=== PATIENT | female | born 1950 | race Caucasian/White ===

== ENCOUNTER 2016-07-28 07:29 | Day surgery (SDC) | payer BC, OTHER ==
--- NOTE | 2016-07-21 12:15 | HISTORY AND PHYSICAL E ---
History and Physical NAME: REI SHARP : 1950 AGE: 65Y ADMITTED: 07/28/2016 ROOM: CHIEF COMPLAINT: Patient known to us in 2008 where she has strong family history of colon cancer. She does have epigastric abdominal pain. Patient was treated for H. pylori with Prevpac. SOCIAL HISTORY: . Two children. Does not smoke. Drinks socially. ALLERGIES: Negative. PAST MEDICAL HISTORY: Colonoscopy in the past. REVIEW OF SYSTEMS: GASTROINTESTINAL: History of polyps and reflux. ENDOCRINE: Negative. RESPIRATORY: Negative. NEUROLOGY: Negative. FAMILY HISTORY: Her father in a accident, fall. Her mom is alive. She has history of colon cancer. PHYSICAL EXAMINATION: VITAL SIGNS: Blood pressure is 110/60, pulse 80, respirations 20, temp is 98. HEAD, EYES, EARS, NOSE, THROAT: Normal. ABDOMEN: Soft. NEUROLOGIC: Negative. Patient referred to us back then by [facility]. She did have colonoscopy showing rectosigmoid polyps and cecal polyp. Her cecum shows adenoma polyp in 2008. A 2 mm polyp in cecum, 2 mm polyp in rectosigmoid. The cecum was tubular adenoma. Patient does have reflux, hiatus hernia. The patient did have ultrasound. It shows fatty liver. Another colonoscopy done 2011 shows as follows: She did have 2 mm prominent mucosa, 2 mm ascending colon polyp. She does have tubular adenoma, ascending colon polyp. CONCLUSION: Strong family history of colon cancer on mom's side, reflux. Patient does have history of small adenoma polyps in the ascending colon. PLAN: Colonoscopy scheduled for 07/28. DICTATING PHYSICIAN: ANDREI SINGLETON M.D. [id number] Y#: [id number] ID: [id number] JOB#: [id number] ACCT: [id number] cc:ANDREI SINGLETON M.D. >
[2016-07-28] MEDS ORDERED: GLYCOPYRROLATE INJ 0.4 MG/2 ML VIAL ONE (07:55)
[2016-07-28] MEDS ORDERED: ONDANSETRON HCL INJ/PF 4 MG/2 ML SDV ONE (07:55)
[2016-07-28] MEDS ORDERED: NALOXONE HCL INJ/PF 0.4 MG/1 ML SDV ONE (07:55)
[2016-07-28] MEDS ORDERED: LIDOCAINE 2% JELLY 30 ML TUBE ONE (07:55)
[2016-07-28] MEDS ORDERED: PROMETHAZINE HCL INJ 25 MG/1 ML VIAL ONE (07:55)
[2016-07-28] MEDS ORDERED: FLUMAZENIL INJ 0.5 MG/5 ML VIAL IV ONE (07:56)
[2016-07-28] MEDS ORDERED: MIDAZOLAM 2 MG/2 ML INJ ONE (07:56)
[2016-07-28] MEDS ORDERED: GLUCAGON,HUMAN RECOMB 1 MG INJ ONE (07:57)
[2016-07-28] MEDS ORDERED: EPINEPHRINE INJ 1 MG/10 ML DISP.SYRIN ONE (07:57)
[2016-07-28] MEDS: MIDAZOLAM 2 MG/2 ML INJ ONE ×2 (08:12→08:23)
[2016-07-28] MEDS: FENTANYL CITRATE INJ/PF 100 MCG/2 ML AMPUL ONE ×3 (08:14→08:27)
[2016-07-28 09:52] VITALS: BP 116/71
[2016-07-28 10:24] LABS: ABSOLUTE BASOPHILS # (AUTO) 0.1 10^3/uL (0.0-0.2); ABSOLUTE EOSINOPHILS # (AUTO) 0.2 10^3/uL (0.0-0.6); ABSOLUTE MONOCYTES (AUTO) 0.9 10^3/uL (0.1-1.4); ABSOLUTE NEUT (AUTO) 11.2 10^3/uL (1.7-8.2); BASOPHILS % (AUTO) 0.5 % (0-2); EOSINOPHILS % (AUTO) 1.3 % (0-6); HEMATOCRIT 40.7 % (36.0-47.0); HEMOGLOBIN 13.3 g/dL (12.0-15.5); HGB HCT DIFFERENCE -0.8; LYMPHOCYTES % (AUTO) 13.8 % (13-45); MEAN CORPUSCULAR HEMOGLOBIN 28.7 pg (27.0-33.4); MEAN CORPUSCULAR HGB CONC 32.6 g/dL (32.0-36.0); MEAN CORPUSCULAR VOLUME 88 fl (80-97); MONOCYTES % (AUTO) 6.2 % (3-13); RED BLOOD COUNT 4.62 10^6/uL (3.72-5.28); RED CELL DISTRIBUTION WIDTH 14.8 % (11.5-14.0); SEGMENTED NEUTROPHILS % (AUTO) 78.2 % (42-78); WHITE BLOOD COUNT 14.3 10^3/uL (4.0-10.5)
--- NOTE | 2016-07-28 12:11 | OPERATIVE REPORT E ---
Operative Report NAME: REI SHARP : 1950 AGE: 65Y DATE OF SURGERY: 07/28/2016 ROOM: PREOPERATIVE DIAGNOSES: 1. Family history of colon cancer. 2. Personal history of adenoma polyp. POSTOPERATIVE DIAGNOSES: 1. Polyps in the rectum too small to biopsy. 2. Polyps in the rectosigmoid, biopsy obtained. 3. Polyp in the transverse colon, biopsy obtained. 4. Polyp in the ascending colon, biopsy obtained. OPERATION: Colon exam. SURGEON: ANDREI SINGLETON M.D. ANESTHESIA: Versed 3 mg and Fentanyl 100 mcg. PROCEDURE: Rectal exam shows diminutive polyps. Anorectal exam shows a tiny polyp at the rectosigmoid junction. Descending colon normal. Transverse colon shows a small 2-mm polyp. Ascending colon 2-mm polyp. Cecum normal. Scope withdrawn cecum, ascending, transverse, descending and sigmoid all the way to the rectum. CONCLUSIONS: Small polyps: A 2 mm ascending, 2 mm transverse, 2 mm rectosigmoid junction. PLAN: 1. Soft low-residue diet for 3 days. 2. Hold aspirin and nonsteroidals for 3 days. 3. Awaiting biopsy results. 4. Consideration of follow-up colonoscopy in 2-3 years pending biopsy results. DICTATING PHYSICIAN: ANDREI SINGLETON M.D. 1209M [id number] PHY#: [id number] ID: [id number] JOB#: [id number] ACCT: [id number] cc:ANDREI SINGLETON M.D., RUTH M.D. >
--- NOTE | 2016-07-28 12:12 | DISCHARGE SUMMARY E ---
Discharge Summary NAME: REI SHARP : 1950 AGE: 65Y ADMITTED: 07/28/2016 DISCHARGED: 07/28/2016 SUMMARY: The patient, 65, underwent colon exam showing a small sigmoid polyp and transverse colon polyp, ascending colon, transverse and sigmoid. DISCHARGE PLAN: 1. Soft low-residue diet for 3 days. 2. Hold aspirin and nonsteroidals for 3 days. 3. Awaiting biopsy results. 4. Consideration of follow-up colonoscopy in 2-3 years awaiting histopathology. DICTATING PHYSICIAN: ANDREI SINGLETON M.D. [id number] PHY#: [id number] ID: [id number] JOB#: [id number] ACCT: [id number] cc:ANDREI SINGLETON M.D. >
== END 2016-07-28 09:50 | disposition home or self-care (01) ==
LOC: END 07:29
PROVIDERS: ATTEND Specialist
PROC: 0DBL8ZX Excision of Transverse Colon, Via Natural or Artificial Opening Endoscopic, Diagnostic (ICD-10-PCS; 2016-07-28)
PROC: 0DBP8ZX Excision of Rectum, Via Natural or Artificial Opening Endoscopic, Diagnostic (ICD-10-PCS; 2016-07-28)
PROC: 0DBL8ZX Excision of Transverse Colon, Via Natural or Artificial Opening Endoscopic, Diagnostic (ICD-10-PCS; 2016-07-28)
PROC: 0DBN8ZX Excision of Sigmoid Colon, Via Natural or Artificial Opening Endoscopic, Diagnostic (ICD-10-PCS; principal; 2016-07-28 08:00)
DX: D12.3 Benign neoplasm of transverse colon (principal); D12.7 Benign neoplasm of rectosigmoid junction; D12.2 Benign neoplasm of ascending colon; K21.9 Gastro-esophageal reflux disease without esophagitis; K76.0 Fatty (change of) liver, not elsewhere classified; K44.9 Diaphragmatic hernia without obstruction or gangrene; Z80.0 Family history of malignant neoplasm of digestive organs
CPT/HCPCS: 45380; 36415; 85025; 88305 ×2; J2250; J3010; J1610; J2405; J0171; J2310; J2550; J3490

== ENCOUNTER 2017-07-17 10:40 | Emergency (ER) | payer BC, OTHER ==
[2017-07-17] MEDS ORDERED: MECLIZINE HCL 25 MG TABLET PO ONE (11:40)
--- NOTE | 2017-07-17 11:42 | ER Document Report ---
ED Medical Screen (RME) - General Chief Complaint: Dizziness Stated Complaint: DIZZINESS,BLOOD PRESSURE CONCERNS Time Seen by Provider: 07/17/17 11:39 Notes: pt complains of one month of dizziness, has been to urgent care, pcp, ENT and treated for sinusitis with no relief TRAVEL OUTSIDE OF THE [place] IN LAST 30 DAYS: No - Related Data Allergies/Adverse Reactions: No Known Allergies Allergy (Verified 07/17/17 10:44) Past Medical History - Social History Frequency of alcohol use: None Drug Abuse: Bath salts - Past Medical History Cardiac Medical History: Denies: Hx Coronary Artery Disease, Hx Heart Attack, Hx Hypertension Pulmonary Medical History: Denies: Hx Asthma, Hx Bronchitis, Hx COPD, Hx Pneumonia Neurological Medical History: Denies: Hx Cerebrovascular Accident, Hx Seizures Renal/ Medical History: Denies: Hx Peritoneal Dialysis Musculoskeltal Medical History: Denies Hx Arthritis Past Surgical History: Denies: Hx Hysterectomy, Hx Pacemaker - Immunizations Hx Diphtheria, Pertussis, Tetanus Vaccination: Yes - ABOUT 15 YEARS AGO. Physical Exam - Vital signs Vitals: Temp Pulse Resp BP Pulse Ox 97.8 F 86 18 140/88 H 98 07/17/17 10:54 07/17/17 10:54 07/17/17 10:54 07/17/17 10:54 07/17/17 10:54 Course - Vital Signs Vital signs: Temp Pulse Resp BP Pulse Ox 97.8 F 86 18 140/88 H 98 07/17/17 10:54 07/17/17 10:54 07/17/17 10:54 07/17/17 10:54 07/17/17 10:54
[2017-07-17 12:24] LABS: ABSOLUTE BASOPHILS # (AUTO) 0.1 10^3/uL (0.0-0.2); ABSOLUTE EOSINOPHILS # (AUTO) 0.1 10^3/uL (0.0-0.6); ABSOLUTE LYMPHOCYTES (AUTO) 2.3 10^3/uL (0.5-4.7); ABSOLUTE MONOCYTES (AUTO) 0.4 10^3/uL (0.1-1.4); ABSOLUTE NEUT (AUTO) 7.7 10^3/uL (1.7-8.2); BASOPHILS % (AUTO) 0.8 % (0-2); EOSINOPHILS % (AUTO) 0.8 % (0-6); HEMATOCRIT 46.1 % (36.0-47.0); HEMOGLOBIN 15.6 g/dL (12.0-15.5); LYMPHOCYTES % (AUTO) 21.6 % (13-45); MEAN CORPUSCULAR HEMOGLOBIN 29.8 pg (27.0-33.4); MEAN CORPUSCULAR HGB CONC 33.9 g/dL (32.0-36.0); MEAN CORPUSCULAR VOLUME 88 fl (80-97); MONOCYTES % (AUTO) 3.9 % (3-13); PLATELET COUNT 340 10^3/uL (150-450); RED BLOOD COUNT 5.25 10^6/uL (3.72-5.28); RED CELL DISTRIBUTION WIDTH 14.6 % (11.5-14.0); SEGMENTED NEUTROPHILS % (AUTO) 72.9 % (42-78); TOTAL CELLS COUNTED % (AUTO) 100 %; WHITE BLOOD COUNT 10.6 10^3/uL (4.0-10.5)
[2017-07-17 12:39] LABS: ALANINE AMINOTRANSFERASE 12 U/L (9-52); ALBUMIN 4.6 g/dL (3.5-5.0); ALKALINE PHOSPHATASE 78 U/L (38-126); ANION GAP 13 (5-19); ASPARTATE AMINO TRANSFERASE 15 U/L (14-36); BILIRUBIN,DIRECT 0.2 mg/dL (0.0-0.4); BILIRUBIN,TOTAL 0.7 mg/dL (0.2-1.3); BLOOD UREA NITROGEN 20 mg/dL (7-20); CALCIUM 10.2 mg/dL (8.4-10.2); CARBON DIOXIDE 29 mmol/L (22-30); CHLORIDE 102 mmol/L (98-107); GLUCOSE 122 mg/dL (75-110); POTASSIUM 4.9 mmol/L (3.6-5.0); TOTAL PROTEIN 7.3 g/dL (6.3-8.2)
--- NOTE | 2017-07-17 12:41 | RADIOLOGY REPORT (SQ) ---
EXAM DESCRIPTION: CT HEAD WITHOUT COMPLETED DATE/TIME: 07/17/2017 12:22 pm REASON FOR STUDY: dizzy COMPARISON: None. TECHNIQUE: Axial images acquired through the brain without intravenous contrast. Images reviewed wi th bone, brain and subdural windows. Images stored on PACS. All CT scanners at this facility use dose modulation, iterative reconstruction, and/or weight based d osing when appropriate to reduce radiation dose to as low as reasonably achievable (ALARA). [facility]: Dose Right [facility]: CareDose [facility]: Dose Right [facility]: Teradose 4D [facility]: [employer] RADIATION DOSE: CT Rad equipment meets quality standard of care and radiation dose reduction techniq ues were employed. CTDIvol: 64.6 mGy. DLP: 1163 mGy-cm. mGy. LIMITATIONS: None. FINDINGS: VENTRICLES: Normal size and contour. CEREBRUM: No masses. No hemorrhage. No midline shift. No evidence for acute infarction. Normal gra y/white matter differentiation. No areas of low density in the white matter. CEREBELLUM: No masses. No hemorrhage. No alteration of density. No evidence for acute infarction. EXTRAAXIAL SPACES: No fluid collections. No masses. ORBITS AND GLOBE: No intra- or extraconal masses. Normal contour of globe without masses. CALVARIUM: No fracture. PARANASAL SINUSES: No fluid or mucosal thickening. SOFT TISSUES: No mass or hematoma. OTHER: No other significant finding. IMPRESSION: NORMAL BRAIN CT WITHOUT CONTRAST. EVIDENCE OF ACUTE STROKE: NO. COMMENT: Quality ID # [id number]: Final reports with documentation of one or more dose reduction techniques (e.g., Automated exposure control, adjustment of the mA and/or kV according to patient size, use of iterative reconstruction technique) TECHNICAL DOCUMENTATION: JOB ID: [id number] [place]-69 2010 [employer]- All Rights Reserved
--- NOTE | 2017-07-17 13:27 | EKG REPORT ---
SEVERITY:- ABNORMAL ECG - SINUS RHYTHM PROBABLE LEFT ATRIAL ABNORMALITY BORDERLINE RIGHT AXIS DEVIATION NONSPECIFIC T ABNORMALITIES, ANT-LAT LEADS : Confirmed by: Andrez Gee MD 17-Jul-2017 13:26:33
[2017-07-17 14:29] LABS: APPEARANCE,URINE SLIGHTLY-CLOUDY; BILIRUBIN,URINE NEGATIVE (NEGATIVE); COLOR,URINE YELLOW; GLUCOSE, URINE NEGATIVE (NEGATIVE); KETONES,URINE NEGATIVE (NEGATIVE); LEUKOCYTE ESTERASE,URINE LARGE (NEGATIVE); NITRITE,URINE NEGATIVE (NEGATIVE); PROTEIN,URINE NEGATIVE (NEGATIVE); URINE SPECIFIC GRAVITY 1.011; UROBILINOGEN,URINE NEGATIVE mg/dL (<2.0)
--- NOTE | 2017-07-17 14:42 | ER Document Report ---
ED Dizziness/Weakness - General Chief Complaint: Dizziness Stated Complaint: DIZZINESS,BLOOD PRESSURE CONCERNS Time Seen by Provider: 07/17/17 11:39 Mode of Arrival: Ambulatory Information source: Patient Notes: Patient states for 1 month she has had dizziness. She states there room spinning she also gets lightheaded. She also states that her blood pressure has been very labile when she takes it at home. She states sometimes be very high other times be very low. She has not noticed anything to make symptoms better or worse. No known radiation symptoms. They have been intermittent. They are mild to moderate. She denies any chest pain or shortness of breath. No numbness tingling weakness or paresthesias. She states she has seen her primary care doctor, and urgent care doctor, and an ear nose and throat doctor. She states she was treated for sinusitis however none of these treatments that included antibiotics and nasal steroids have changed the symptoms. TRAVEL OUTSIDE OF THE [place] IN LAST 30 DAYS: No - Related Data Allergies/Adverse Reactions: No Known Allergies Allergy (Verified 07/17/17 10:44) Past Medical History - General Information source: Patient - Social History Smoking Status: Current Every Day Smoker Frequency of alcohol use: None Drug Abuse: Bath salts Family History: Reviewed & Not Pertinent Patient has suicidal ideation: No Patient has homicidal ideation: No - Past Medical History Cardiac Medical History: Denies: Hx Coronary Artery Disease, Hx Heart Attack, Hx Hypertension Pulmonary Medical History: Denies: Hx Asthma, Hx Bronchitis, Hx COPD, Hx Pneumonia Neurological Medical History: Denies: Hx Cerebrovascular Accident, Hx Seizures Renal/ Medical History: Denies: Hx Peritoneal Dialysis Musculoskeltal Medical History: Denies Hx Arthritis Past Surgical History: Denies: Hx Hysterectomy, Hx Pacemaker - Immunizations Hx Diphtheria, Pertussis, Tetanus Vaccination: Yes - ABOUT 15 YEARS AGO. Review of Systems - Review of Systems Constitutional: Malaise, Recent illness Cardiovascular: denies: Chest pain, Palpitations Respiratory: denies: Cough, Short of breath Skin: denies: Lesions, Rash -: Yes All other systems reviewed and negative Physical Exam - Vital signs Vitals: Temp Pulse Resp BP Pulse Ox 97.8 F 86 18 140/88 H 98 07/17/17 10:54 07/17/17 10:54 07/17/17 10:54 07/17/17 10:54 07/17/17 10:54 Interpretation: Normal - General General appearance: Appears well, Alert - HEENT Head: Normocephalic, Atraumatic Eyes: Normal Pupils: PERRL - Respiratory Respiratory status: No respiratory distress Chest status: Nontender Breath sounds: Normal Chest palpation: Normal - Cardiovascular Rhythm: Regular Heart sounds: Normal auscultation Murmur: No - Abdominal Inspection: Normal Distension: No distension Bowel sounds: Normal Tenderness: Nontender Organomegaly: No organomegaly - Back Back: Normal, Nontender - Extremities General upper extremity: Normal inspection, Nontender, Normal color, Normal ROM , Normal temperature General lower extremity: Normal inspection, Nontender, Normal color, Normal ROM , Normal temperature, Normal weight bearing. No: Kevin's sign - Neurological Neuro grossly intact: Yes Cognition: Normal Orientation: AAOx4 Bethesda Coma Scale Eye Opening: Spontaneous Bethesda Coma Scale Verbal: Oriented [place] Coma Scale Motor: Obeys Commands [place] Coma Scale Total: 15 Speech: Normal Motor strength normal: LUE, RUE, LLE, RLE Sensory: Normal - Psychological Associated symptoms: Normal affect, Normal mood - Skin Skin Temperature: Warm Skin Moisture: Dry Skin Color: Normal Course - Vital Signs Vital signs: Temp Pulse Resp BP Pulse Ox 97.8 F 86 18 140/88 H 98 07/17/17 10:54 07/17/17 10:54 07/17/17 10:54 07/17/17 10:54 07/17/17 10:54 - Laboratory Result Diagrams: 07/17/17 12:10 07/17/17 12:10 Laboratory results interpreted by me: 07/17/17 07/17/17 07/17/17 12:10 12:10 13:55 WBC 10.6 H Hgb 15.6 H RDW 14.6 H Glucose 122 H Urine Blood MODERATE H Ur Leukocyte Esterase LARGE H Urine Ascorbic Acid 20 H - Diagnostic Test Radiology reviewed: Image reviewed, Reports reviewed Discharge - Discharge Clinical Impression: Dizziness Urinary tract infection Qualifiers: Urinary tract infection type: site unspecified Hematuria presence: without hematuria Qualified Code(s): N39.0 - Urinary tract infection, site not specified Condition: Stable Disposition: HOME, SELF-CARE Instructions: Urinary Tract Infection ([facility]), Dizziness ([facility]) Additional Instructions: Please contact your primary care physician as soon as possible to arrange for a reevaluation Prescriptions: Cefdinir 300 mg PO BID 7 Days #14 capsule Forms: Return to Work
[2017-07-17 14:56] VITALS: BP 144/77
== END 2017-07-17 14:55 | disposition home or self-care (01) ==
LOC: ER 10:40
DX: N39.0 Urinary tract infection, site not specified (principal); R42 Dizziness and giddiness; F17.200 Nicotine dependence, unspecified, uncomplicated
CPT/HCPCS: 36415; 70450; 80053; 81001; 85025; 93005; 93010; 99284

== ENCOUNTER 2017-08-14 16:54 | Emergency (ER) | payer BC, OTHER ==
[2017-08-14 17:41] LABS: ABSOLUTE BASOPHILS # (AUTO) 0.1 10^3/uL (0.0-0.2); ABSOLUTE EOSINOPHILS # (AUTO) 0.1 10^3/uL (0.0-0.6); ABSOLUTE LYMPHOCYTES (AUTO) 2.1 10^3/uL (0.5-4.7); ABSOLUTE NEUT (AUTO) 10.1 10^3/uL (1.7-8.2); BASOPHILS % (AUTO) 0.7 % (0-2); EOSINOPHILS % (AUTO) 0.5 % (0-6); HEMATOCRIT 42.9 % (36.0-47.0); HEMOGLOBIN 14.1 g/dL (12.0-15.5); LYMPHOCYTES % (AUTO) 16.1 % (13-45); MEAN CORPUSCULAR HGB CONC 32.9 g/dL (32.0-36.0); MEAN CORPUSCULAR VOLUME 88 fl (80-97); MONOCYTES % (AUTO) 7.3 % (3-13); PLATELET COUNT 331 10^3/uL (150-450); RED BLOOD COUNT 4.87 10^6/uL (3.72-5.28); RED CELL DISTRIBUTION WIDTH 14.1 % (11.5-14.0); SEGMENTED NEUTROPHILS % (AUTO) 75.4 % (42-78); TOTAL CELLS COUNTED % (AUTO) 100 %; WHITE BLOOD COUNT 13.4 10^3/uL (4.0-10.5)
[2017-08-14 17:49] LABS: ALANINE AMINOTRANSFERASE 23 U/L (9-52); ALBUMIN 4.3 g/dL (3.5-5.0); ALKALINE PHOSPHATASE 75 U/L (38-126); ANION GAP 10 (5-19); ASPARTATE AMINO TRANSFERASE 32 U/L (14-36); BILIRUBIN,DIRECT 0.3 mg/dL (0.0-0.4); BILIRUBIN,TOTAL 0.9 mg/dL (0.2-1.3); BLOOD UREA NITROGEN 15 mg/dL (7-20); CALCIUM 9.7 mg/dL (8.4-10.2); CARBON DIOXIDE 25 mmol/L (22-30); CHLORIDE 103 mmol/L (98-107); GLUCOSE 113 mg/dL (75-110); POTASSIUM 4.2 mmol/L (3.6-5.0); SODIUM 138.1 mmol/L (137-145); TOTAL PROTEIN 7.6 g/dL (6.3-8.2)
[2017-08-14 19:16] LABS: APPEARANCE,URINE CLEAR; BILIRUBIN,URINE NEGATIVE (NEGATIVE); COLOR,URINE STRAW; GLUCOSE, URINE NEGATIVE (NEGATIVE); KETONES,URINE NEGATIVE (NEGATIVE); LEUKOCYTE ESTERASE,URINE NEGATIVE (NEGATIVE); NITRITE,URINE NEGATIVE (NEGATIVE); PROTEIN,URINE NEGATIVE (NEGATIVE); URINE SPECIFIC GRAVITY 1.004; UROBILINOGEN,URINE NEGATIVE mg/dL (<2.0)
--- NOTE | 2017-08-14 21:48 | ER Document Report ---
ED General - General Chief Complaint: General Weakness Stated Complaint: ALTERED MENTAL STATUS Time Seen by Provider: 08/14/17 17:01 Notes: Patient is here because she is having worsening problems with her memory and it is harder for her to recall things. This is been going on over the past 3 months but has worsened recently. She is also having difficulty with her balance. Patient was seen here a couple of weeks ago. She ended up at [facility] after having had an outpatient MRI of the brain which shows some findings that were suggestive of acute or subacute thromboembolic lesions. She was put in the [facility] overnight on July 31, and had CTAs of the head and neck which were normal. Patient had a neurological consult by a Dr. Cavanaugh and was discharged with a follow-up appointment to be scheduled on August 17 at 10:45 AM as an outpatient. Patient is aware of starting outpatient physical therapy tomorrow which she question she is going to be able to do because of the problems she is having with her balance. She does not know of the appointment later this week on the . TRAVEL OUTSIDE OF THE [place] IN LAST 30 DAYS: No - Related Data Allergies/Adverse Reactions: No Known Allergies Allergy (Verified 07/17/17 10:44) Past Medical History - Social History Smoking Status: Former Smoker Chew tobacco use (# tins/day): No Frequency of alcohol use: Occasional Drug Abuse: None Family History: Reviewed & Not Pertinent Patient has suicidal ideation: No Patient has homicidal ideation: No - Past Medical History Cardiac Medical History: Reports: Hx Hypercholesterolemia, Hx Hypertension Neurological Medical History: Reports: Hx Cerebrovascular Accident - See HPI. Patient has been diagnosed with TIAs for the symptoms she has had. Denies: Hx Seizures Musculoskeltal Medical History: Denies Hx Arthritis - Immunizations Hx Diphtheria, Pertussis, Tetanus Vaccination: Yes - ABOUT 15 YEARS AGO. Review of Systems - Review of Systems Notes: REVIEW OF SYSTEMS: CONSTITUTIONAL : Denies fever. Difficulty with balance when walking. Vital signs are all essentially normal. EENT: Denies eye, ear, nose or mouth or throat pain or other symptoms. CARDIOVASCULAR: Denies chest pain. RESPIRATORY: Denies cough, chest congestion, or shortness of breath. GASTROINTESTINAL: Denies abdominal pain or nausea, vomiting, or diarrhea. GENITOURINARY: Denies difficulty or painful urinating, urinary frequency, blood in urine. MUSCULOSKELETAL: Denies back or neck pain. Denies joint pain or swelling. SKIN: Denies rash or skin lesions. NEUROLOGICAL: Denies LOC, but is forgetful and having problem with her memory, see HPI. Denies headache. Denies sensory loss or deficits, but is having difficulty walking. ALL OTHER SYSTEMS REVIEWED AND NEGATIVE. Physical Exam - Vital signs Vitals: Temp Pulse Resp BP Pulse Ox 98.2 F 69 18 168/95 H 95 08/14/17 17:42 08/14/17 17:42 08/14/17 17:42 08/14/17 17:42 08/14/17 17:42 Interpretation: Normal - Notes Notes: PHYSICAL EXAMINATION: GENERAL: Well-appearing, in no acute distress. Slightly anxious. Patient can stand without assistance and ambulate to the sink and back to the stretcher. She takes small steps as if it is affecting her balance. She does not favor one side or the other. HEAD: Atraumatic, normocephalic. EYES: Pupils equal round and reactive to light, extraocular movements intact. ENT: oropharynx clear without exudates. Moist mucous membranes. NECK: Normal range of motion, supple. LUNGS: Breath sounds clear and equal bilaterally. HEART: Regular rate and rhythm without murmurs. ABDOMEN: Soft, nontender. No guarding or rebound. No masses. BACK: No tenderness throughout entire back. EXTREMITIES: Normal range of motion without pain. NEUROLOGICAL: Normal speech, abnormal gait. See above under General. Normal sensory, motor, and reflex exams. Awake, alert, and oriented x3. Cranial nerves normal. PSYCH: Normal mood, normal affect. SKIN: Warm, dry, no rashes. Course - Re-evaluation Re-evalutation: 08/15/17 00:40 During patient's stay in the department, I had a CT scan which was interpreted as normal. I spoke with the hospitalist at [facility], who reviewed the chart and gave me a lot of helpful information. She made me aware that the patient has an appointment at the end of this week, on the , with a neurologist nurse practitioner. I made the family and patient aware of that. Patient's neurologic symptoms do not fit a true physiologic neurologic deficit, in my opinion. I am not sure what the motivation is for the patient's attempt at difficulty ambulating, but I am questioning if it is physiologically based or could possibly be for secondary gain. Regardless, patient's condition appears to be stable. It has been ongoing for many months. There is not an acute deterioration that requires further workup at this time. I think she will be fine until her appointment in [place] in 3 days. - Vital Signs Vital signs: Temp Pulse Resp BP Pulse Ox 99.0 F 82 16 125/98 H 96 08/14/17 22:47 08/14/17 22:47 08/14/17 22:47 08/14/17 22:47 08/14/17 20:14 - Laboratory Result Diagrams: 08/14/17 17:12 08/14/17 17:12 Laboratory results interpreted by me: 08/14/17 08/14/17 08/14/17 17:12 17:12 19:00 WBC 13.4 H RDW 14.1 H Absolute Neutrophils 10.1 H Glucose 113 H Urine Blood MODERATE H Discharge - Discharge Clinical Impression: Disequilibrium, Memory loss Condition: Stable Disposition: HOME, SELF-CARE Additional Instructions: Transient Ischemic Attack You have been diagnosed as having a transient ischemic attack (TIA). This is caused when an artery to the brain has been temporarily blocked. It can result in visual changes, difficulty with speech, and weakness or numbness -- usually limited to one side of the body. TIA symptoms usually resolve within an hour, but a TIA is serious, as it may be a warning sign of an impending stroke. To prevent further episodes, you may be placed on medication to reduce the possibility that your platelets will aggregate and form blood clots in the arteries that supply the brain. Usually, this includes aspirin and sometimes other platelet inhibitors. Further evaluation is often necessary to make an exact diagnosis as to where these blood clots are originating, and if anything else needs to be done to correct the problem. Call the physician or go to the emergency room if episodes occur with increasing frequency. If symptoms occur that don't go away within a few minutes , call 911. NORMAL EXAM AND WORKUP: At this time, your examination and workup show no significant abnormality. No significant abnormal physical findings were noted. All laboratory, EKG, and imaging (x-ray, CT scans, ultrasound) studies that were ordered show no significant abnormality. Although your examination and all studies that were ordered showed no significant abnormal finding, there are no examinations and no studies that are 100% accurate. There is always the possibility that some abnormality could exist and not be detected with physical examination or within the limits and capabilities of laboratory and other studies. You should return or follow up as you were instructed on your visit today for further evaluation if your symptoms do not resolve. Continue to take a baby aspirin every day. You have an appointment to see a nurse practitioner by the name of Radha Menard who works with the neurologist in [place]. Your appointment is scheduled for August 17 at 10:45 AM. Called this following number tomorrow to confirm your appointment time and get the address for you to be there: [phone]. FOLLOW-UP CARE: If you have been referred to a physician for follow-up care, call the physician s office for an appointment as you were instructed or within the next two days. If you experience worsening or a significant change in your symptoms, notify the physician immediately or return to the Emergency Department at any time for re-evaluation. Forms: Return to Work
--- NOTE | 2017-08-14 21:54 | RADIOLOGY REPORT (SQ) ---
EXAM DESCRIPTION: CT HEAD WITHOUT COMPLETED DATE/TIME: 08/14/2017 8:56 pm REASON FOR STUDY: Memory loss and balance disturbance, Hx TIAs COMPARISON: 07/17/2017 TECHNIQUE: Axial images acquired through the brain without intravenous contrast. Images reviewed wi th bone, brain and subdural windows. Images stored on PACS. All CT scanners at this facility use dose modulation, iterative reconstruction, and/or weight based d osing when appropriate to reduce radiation dose to as low as reasonably achievable (ALARA). [facility]: Dose Right [facility]: CareDose [facility]: Dose Right [facility]: Teradose 4D [facility]: [employer] RADIATION DOSE: CT Rad equipment meets quality standard of care and radiation dose reduction techniq ues were employed. CTDIvol: 64.6 - 67.0 mGy. DLP: 2216 mGy-cm. mGy. LIMITATIONS: None. FINDINGS: VENTRICLES: Normal size and contour. CEREBRUM: No masses. No hemorrhage. No midline shift. No evidence for acute infarction. Normal gra y/white matter differentiation. No areas of low density in the white matter. CEREBELLUM: No masses. No hemorrhage. No alteration of density. No evidence for acute infarction. EXTRAAXIAL SPACES: No fluid collections. No masses. ORBITS AND GLOBE: No intra- or extraconal masses. Normal contour of globe without masses. CALVARIUM: No fracture. PARANASAL SINUSES: No fluid or mucosal thickening. SOFT TISSUES: No mass or hematoma. OTHER: No other significant finding. IMPRESSION: NORMAL BRAIN CT WITHOUT CONTRAST. EVIDENCE OF ACUTE STROKE: NO. COMMENT: The findings were discussed with the ordering physician at 2149 hours on this date. Quality ID # [id number]: Final reports with documentation of one or more dose reduction techniques (e.g., Au tomated exposure control, adjustment of the mA and/or kV according to patient size, use of iterative reconstruction technique) TECHNICAL DOCUMENTATION: JOB ID: [id number] [employer]- All Rights Reserved Reading location - IP/workstation name: [email or web address]
[2017-08-14 22:48] VITALS: BP 125/98
== END 2017-08-14 22:54 | disposition home or self-care (01) ==
LOC: ER 16:54
DX: H81.93 Unspecified disorder of vestibular function, bilateral (principal); R41.3 Other amnesia; F41.9 Anxiety disorder, unspecified; Z87.891 Personal history of nicotine dependence; I10 Essential (primary) hypertension
CPT/HCPCS: 36415; 70450; 80053; 81001; 85025; 99285